=== PATIENT | female | born 1955 | race Caucasian/White ===

== ENCOUNTER → 2016-10-24 | Outpatient (CLI) | payer OTHER ==
[~2016-10-24] MED LIST: ATIVAN0.5 MG PO; CALCIUM500 MG PO; CLARITIN10 MG PO; DEXAMETHASONE2 MG PO; IMODIUM DPS2 MG PO; LOMOTIL DPS1 PO; MULTIVITAMINS1 EAC1 PO; PHENERGAN DPS25 MG PO; RANITIDINE HCL150 M1 PO; SINGULAIR10 MG PO; TYLENOL #3 DPS1 TAB PO; ZOFRAN4 M1 PO
== END | disposition home or self-care (01) ==
LOC: RAD.S 10-16 14:00
DX: M81.0 Age-related osteoporosis without current pathological fracture (principal); C50.111 Malignant neoplasm of central portion of right female breast; M85.89 Other specified disorders of bone density and structure, multiple sites